=== PATIENT | male | born 1990 | race Two or more races ===

== ENCOUNTER 2019-12-15 08:54 | Emergency (ER) | payer OTHER, MEDICARE, MEDICAID, SELFPAY ==
[2019-12-15 08:54] VITALS: BP 175/101; PULSE 133; RESP 23; TEMP 36.6; O2SAT 98; BMI 29.9
[2019-12-15 08:58] VITALS: PULSE 134; RESP 16; O2SAT 97
--- NOTE | 2019-12-15 09:09 | EKG12_ITS ---
Test Reason : LOWBP Blood Pressure : / mmHG Vent. Rate : 106 BPM Atrial Rate : 106 BPM P-R Int : 130 ms QRS Dur : 106 ms QT Int : 340 ms P-R-T Axes : 038 044 026 degrees QTc Int : 451 ms Sinus tachycardia Otherwise normal ECG Confirmed by MANDEEP MARTINES ([id number]), index editor ELTON MCDERMOTT ([id number]) on 12/17/2019 9:02:40 AM Referred By: PIPPA Confirmed By:MANDEEP MARTINES
--- NOTE | 2019-12-15 09:10 | RAD_ITS ---
STUDY: X-RAY CHEST REASON FOR EXAM: Male, 29 years old. HYPOTENSION THIS MORNING TECHNIQUE: Single AP portable view of the chest. COMPARISON: Comparison is made with prior study dated 06/12/2013. FINDINGS: EKG electrodes are seen. The lungs are clear and expanded. There is no demonstrated pleural abnormality. There is borderline cardiomegaly. Normal mediastinum and marlen. Normal visualized pulmonary arteries. Normal visualized aortic arch and descending thoracic aorta. Normal visualized thoracic spine. Normal visualized ribs, clavicles, and shoulders. There is no demonstrated abnormality of the visualized soft tissue structures of the upper abdomen. RAD/Chest 1 View (Portable) IMPRESSION: Borderline cardiomegaly. Electronically Signed: Db Rodriguez, at 10:55 EDT , Service support ,
--- NOTE | 2019-12-15 09:12 | ED.DCSUM_ITS ---
History of Present Illness Chief Complaint: Hypotension Informant: Patient, Friend Narrative: Patient is a 29-year-old male who presents to the ED for hypotensive episode. 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 His coworker who is at bedside states that he has seemed very sleepy today. He was far behind the group. He has never been like this before in the past. They took his blood pressure which was low. Patient keeps repeating that he is fine. Denies any symptoms at this time. States he has a distant history of blood clot in his lungs but otherwise is healthy. Does not take any medications. Denies smoking, drinking drug use. Has not had any chest pain, shortness of breath or lightheadedness. He denies any recent illness including any fever/chills. No cough, cold, congestion. Denies any nausea/vomiting or diarrhea. Denies any urinary symptoms. No headache or neck stiffness. Past Medical History - Allergies and Home Meds Allergies/Adverse Reactions: Allergies No Known Allergies Allergy (Verified 06/12/13 11:37) Primary Care Physician: Care Physician,No Primary [NON-STAFF] - 2 Days Prior records reviewed: Yes Past Medical History: - - PE Surgical History: noncontributory Smoking Status: Never smoker Alcohol: None Drugs: None Review of Systems All systems negative except as indicated General: Denies: Chills, Fever, Sweats Eyes: Denies: Visual changes - bilaterally, Diplopia ENT: Denies: Rhinorrhea, Sore throat Cardiovascular: Denies: Chest pain, Palpitations Respiratory: Denies: Dyspnea, Cough, Dyspnea on exertion Gastrointestinal: Denies: Abdominal pain, Nausea, Vomiting, Diarrhea Genitourinary: Denies: Dysuria, Hematuria, Frequency Musculoskeletal: Denies: Back pain, Extremity Pain Skin: Denies: Rash, Wounds Neurological: Denies: Headache, Weakness, Numbness Physical Exam Vital Signs/Narrative: Vital Signs Temp Pulse Resp BP Pulse Ox 12/15/19 08:58 134 H 16 97 12/15/19 08:54 97.9 F 133 H 23 H 175/101 H 98 Inital Vital Signs reviewed: Yes General: Well nourished, Well developed, - - Patient is slightly agitated to being in the ED. Head: Normocephalic, Atraumatic Eyes: Perrl, EOMI ENT: Moist mucous membranes, No rhinorrhea Neck: Supple, Nontender Cardiovascular: Regular rhythm, No murmurs, Tachycardia Respiratory: No distress, CTA bilaterally, Chest nontender Abdomen: Soft, Nontender, Nondistended, Normal bowel sounds Back: Nontender, Normal Inspection Extremities: Nontender, No edema. Negative for: Calf Tenderness Skin: Normal color, No rash Neurological: Alert, Oriented x3, Cranial nerves II-XII grossly intact, Normal Strength, Normal Sensation Diagnostic/Tx/Re-eval - EKG Initial EKG Interpretation: - - Rate of 106 bpm in sinus tachycardia. Normal intervals. Normal axis. No ST elevations or depressions appreciated. No T wave abnormalities. No prior EKG for comparison. - Medical Decision Making Patient presents the ED for tiredness and altered mental status compared to his baseline. He had a low blood pressure reading in the hospital. Was sent down to the ED for evaluation. He currently states he does not want to be here and he feels fine. On arrival to the ED patient is not hypotensive but is tachycardic. Otherwise normal vital signs. No infectious signs on physical exam. Will check basic lab work. Patient's heart rate was fluid responsive with 1 L of normal saline. D-dimer test was negative. Rest lab work did not reveal any significant acute abnormality. Patient has been asymptomatic throughout ED stay. Low concern for PE given negative d-dimer, no chest pain or shortness of breath. At this time he does feel comfortable being discharged. Mother is at bedside with him. He was able to ambulate around the ED without any difficulty or return of his symptoms. They are to follow-up with his PCP. He develops any worsening sym ptoms he is to return to the [facility] immediately. This time will discharge him home in stable condition. He understands and is agreeable with this plan. ED Disposition - Plan for ED Patient: Disposition: Home or Assisted Living Diagnosis: Hypotensive episode Instructions: ED Low Blood Pressure All Causes Referrals: Care Physician,No Primary [NON-STAFF] - 2 Days
[2019-12-15] MEDS: 0.9% Normal Saline 1,000 ML 999 ML IV (09:29)
[2019-12-15 09:41] LABS: ALB/GLOB Ratio 1.2 RATIO (0.9-2.4); AST(SGOT) 19 U/L (15-37); Alanine Aminotransfer ALT/SGPT 46 U/L (16-61); Albumin, Serum 4.4 g/dL (3.2-5.0); Alkaline Phosphatase 94 U/L (45-117); Anion Gap 6 (5-15); BUN 11 mg/dL (7-18); BUN/Creat Ratio 8.5 RATIO (10-20); Calcium,Total 9.2 mg/dL (8.5-10.1); Chloride 106 mmol/L (98-107); EST Glomerular Filtration Rate 68 mL/min (>60); Est Glom Filt Rate - Afr Amer 83 mL/min (>60); Estimated Creatinine Clearance 90.37 ml/min; Globulin 3.7 g/dL (2.2-4.2); Glucose 131 mg/dL (74-106); Magnesium 2.1 mg/dL (1.6-2.6); Potassium 3.7 mmol/L (3.5-5.1); Protein, Total 8.1 g/dL (6.4-8.2); Sodium Level 141 mmol/L (136-145)
[2019-12-15 09:48] LABS: D-Dimer Quantitative (DVT/PE) <= 0.27 FEU/ug/m (0.27-0.49)
[2019-12-15 09:52] LABS: Alcohol, Blood (Medical)-Serum < 3.0 mg/dL
[2019-12-15 10:23] LABS: Absolute Lymphocyte Count 2.76 X10^3/uL (0.83-4.51); Absolute Neutrophil Count 5.4 X10^3/uL (2.0-7.7); Basophil# 0.08 X10^3/uL; Basophil% 0.9 % (0-1); Eosinophil# 0.14 X10^3/uL; Eosinophils% 1.5 % (0-5); Hematocrit 50.5 % (40-54); Hemoglobin 17.4 g/dL (13.0-16.5); Lymphocyte # 2.76 X10^3/ul (4.0); Lymphocyte % 29.4 % (19-41); Mean Corp Hgb Conc 34.5 g/dL (32-36); Mean Corpuscular Hgb 30.4 pg (27.0-32.0); Mean Corpuscular Volume 88.3 fL (80-94); Mean Platelet Vol. 10.2 fl (6.2-12.0); Monocyte# 1.02 X10^3/uL; Monocyte% 10.9 % (0-10); NRBC Flagged by Analyzer 0 % (0-5); Neutrophil # 5.36 X10^3/uL (2.7-7.7); Platelet Count 350 K/mm3 (150-450); RBC Distribution Width CV 11.8 % (11.6-14.6); RBC Distribution Width SD 37.6 fl (35.1-43.9); Red Blood Count 5.72 M/mm3 (4.6-6.2); White Blood Count 9.4 K/mm3 (4.4-11.0)
[2019-12-15 11:06] LABS: Amphetamine Urine VISTA NEGATIVE (<1000 ng/mL); Barbiturate Urine VISTA NEGATIVE (< 200 ng/mL); Benzodiazepine Urine VISTA NEGATIVE (< 200 ng/mL); Cocaine Urine VISTA NEGATIVE (< 300 ng/mL); Ecstacy Urine VISTA NEGATIVE (< 500 ng/mL); Methadone Urine VISTA NEGATIVE (< 300 ng/mL); PCP Urine VISTA NEGATIVE (< 25 ng/mL); THC Urine VISTA NEGATIVE (< 50 ng/mL); Vista UDS pH Range 6
[2019-12-15 11:18] VITALS: BP 121/82; PULSE 83; RESP 16
[2019-12-15 11:27] LABS: Mucous, Urine 0 SEEN /hpf (<or=2+); Red Blood Cells-Urine 0 SEEN /hpf (0-5); Squamous Epithelial Cells - UA 0 SEEN /hpf (0-5)
[2019-12-15 11:29] LABS: Color, Urine Yellow (Yellow); Glucose, Dipstick 50 mg/dl (Normal); Ketone-Dipstick 5 mg/dl (Negative); Leukocyte Esterase-Dipstick 25 /ul (Negative); Nitrite-Dipstick Negative (Negative); Occult Blood-Urine Negative /ul (Negative); Protein-Dipstick 15 mg/dl (Negative); Specific Gravity, Urine 1.015 (1.002-1.030); Urine Bilirubin Dipstick Negative (Negative); Urine Clarity Clear (Clear); Urine Urobilinogen 4 mg/dl (Normal); Urine pH 6.5 (5.0 - 8.0)
[2019-12-15 11:36] LABS: Bacteria 1+ /hpf (None Seen); White Blood Cells 0-5 SEEN /hpf (0-5)
== END 2019-12-15 11:20 | disposition home or self-care (01) ==
PROVIDERS: Emergency Provider Emergency Medicine; PCP Nurse Practitioner Primary Care
DX: I95.9 Hypotension, unspecified (principal); R00.0 Tachycardia, unspecified; Z86.711 Personal history of pulmonary embolism
CPT/HCPCS: 71045; 80053; 80307; 80320; 81001; 83735; 84484; 85025; 85379; 93005; 96360; 99282; J7030; A4216; G0480